=== PATIENT | male | born 1975 | race Caucasian/White ===

== ENCOUNTER → 2020-12-26 10:58 | Outpatient (CLI) | payer OTHER, SELFPAY ==
--- NOTE | ~2020-12-26 | XR_ITS ---
EXAMINATION: XR shoulder RT min 2V DATE: 12/26/2020 11:27 INDICATION: Right shoulder pain. TECHNIQUE: 5 views of right shoulder were obtained. COMPARISON: None. FINDINGS: Bone alignment is normal. No fracture. There is a benign bone island in proximal right sg nathaly. The glenohumeral joint is normal. There is mild acromioclavicular joint osteoarthritis. IMPRESSION: 1. Mild right acromioclavicular joint osteoarthritis. Reviewed, dictated and finalized at location A. [employer]
== END ==
PROVIDERS: PCP Internal Medicine; Visit Provider Internal Medicine
DX: M19.011 Primary osteoarthritis, right shoulder (principal)
CPT/HCPCS: 73030

== ENCOUNTER 2023-08-26 00:56 | Day surgery (SDC) | payer OTHER, SELFPAY ==
[2023-08-18 12:43] VITALS: BMI 30.9
--- NOTE | 2023-08-25 12:58 | PM.HPGS ---
History of Present Illness History of Present Illness Consent: Risks, benefits, and alternatives have been discussed and questions answered. Patient agrees to proceed with procedure. Chief complaint: neoplasm screening Narrative: Stanford Milner is a 47 year old male Referred for colon cancer screening. Review of Systems Review of Systems: All systems reviewed & are unremarkable except as noted in HPI and below PMFSH Past Medical History Medical History Gastro-esophageal reflux disease without esophagitis Hyperlipidemia Obesity Pure hypercholesterolemia Tendonitis of both rotator cuffs Type 2 diabetes mellitus Surgical History Surgical History No pertinent past surgical history Family History Family History Mother Family history of obesity Diabetes mellitus type 2 Sibling Prediabetes Hypertension Social History Social History Smoking status: Never smoker Second hand tobacco smoke exposure: No Alcohol intake: never Alcohol use details: socially Substance use: never Substance use type: does not use Lack of Transportation: No Lack of Food: Never True Current Housing: I Have Housing Concerned About Future Housing: No Difficulty Paying Gas/Electric Bills: No Difficulty Paying for Meds: No Currently Unemployed: No Education: Trade/Vocational Certificate Difficulty w/ Childcare or Family Care: No Living arrangements: with family Spiritual care concerns: No Meds Home Medications and Allergies Home Medications Medication Instructions Recorded Confirmed Type lisinopril 10 mg tablet 10 mg PO DAILY #90 tabs 11/05/22 08/18/23 Rx metformin 500 mg tablet 500 mg PO .COMPLEX #270 tabs 05/19/23 08/18/23 Rx multivitamin 1 tablet PO DAILY 05/19/23 08/18/23 History pravastatin 20 mg tablet 20 mg PO DAILY #90 tabs 05/30/23 08/18/23 Rx semaglutide 1 mg/dose (4 mg/3 mL) 1 mg (0.75 mL) subcut WEEKLY #9 mL 06/29/23 08/18/23 Rx subcutaneous pen injector (Ozempic) Allergies Allergy/AdvReac Type Severity Reaction Status Date / Time No Known Allergies Allergy Verified 08/26/23 12:07 Exam Const: General: alert Orientation/consciousness: patient oriented x3 Resp: Auscultation: clear to auscultation bilaterally Cardio: Rhythm: regular rhythm GI: GI Palp: Yes Soft to palpation and No Tenderness to palpation present (GI) Neuro: General: patient oriented x3 Assessment and Plan Assessment and plan (1) Colon cancer screening: Code(s): Z12.11 - Encounter for screening for malignant neoplasm of colon Status: Acute Assessment and Plan: Colonoscopy with possible biopsy or polypectomy or cautery or injection of substances.
[2023-08-26 12:08] VITALS: BP 119/82; PULSE 91; RESP 18; TEMP 36.5; O2SAT 100
[2023-08-26] MEDS: LACTATED RINGERS 1,000 ML 150 ML IV CONT (12:25)
--- NOTE | 2023-08-26 12:28 | WPDANESEPPF ---
Anes - Initial Pre Proc Eval Procedure: Operation Date: 08/26/23 14:15 Proposed Procedures p Screening Colonoscopy - Rogelio Tenorio MD Date/Time: 08/26/23 12:28 Surgeon: Rogelio Tenorio MD Pre Op Diagnosis: neoplasm screening Patient Data Age: 47 Gender: M Height: 1.78 m Weight: 94.3 kg Last Vital Signs Temp 97.7 F 08/26/23 12:08 Pulse 91 08/26/23 12:08 Resp 18 08/26/23 12:08 BP 119/82 08/26/23 12:08 Pulse Ox 100 08/26/23 12:08 O2 Del Method Room Air 08/26/23 12:08 Allergies Allergy/AdvReac Type Severity Reaction Status Date / Time No Known Allergies Allergy Verified 08/26/23 12:07 Home Medications Medication Instructions Recorded Confirmed Type lisinopril 10 mg tablet 10 mg PO DAILY #90 tabs 11/05/22 08/18/23 Rx metformin 500 mg tablet 500 mg PO .COMPLEX #270 tabs 05/19/23 08/18/23 Rx multivitamin 1 tablet PO DAILY 05/19/23 08/18/23 History pravastatin 20 mg tablet 20 mg PO DAILY #90 tabs 05/30/23 08/18/23 Rx semaglutide 1 mg/dose (4 mg/3 mL) 1 mg (0.75 mL) subcut WEEKLY #9 mL 06/29/23 08/18/23 Rx subcutaneous pen injector (Ozempic) Patient hx anesthesia problems: none Family hx anesthesia problems: none Results Review: All pre-operative results and documents have been reviewed as part of the pre-operative evaluation. PENDING SALE TO [facility] Past Medical History Medical History Gastro-esophageal reflux disease without esophagitis Hyperlipidemia Obesity Pure hypercholesterolemia Tendonitis of both rotator cuffs Type 2 diabetes mellitus Surgical History Surgical History No pertinent past surgical history Family History Family History Mother Family history of obesity Diabetes mellitus type 2 Sibling Prediabetes Hypertension Social History Social History (Reviewed 05/19/23 @ 09:29 by MCKINLEY Bullock Smoking status: Never smoker Second hand tobacco smoke exposure: No Alcohol intake: never Alcohol use details: socially Substance use: never Substance use type: does not use Lack of Transportation: No Lack of Food: Never True Current Housing: I Have Housing Concerned About Future Housing: No Difficulty Paying Gas/Electric Bills: No Difficulty Paying for Meds: No Currently Unemployed: No Education: Trade/Vocational Certificate Difficulty w/ Childcare or Family Care: No Living arrangements: with family Spiritual care concerns: No Anes - Eval Final PreProcedure Day of Procedure 08/26/23 12:28 Patient weight: obese Heart: regular rate and rhythm Lungs: clear to auscultation Airway: Mallampati scale class II Neurological: alert and oriented Last oral intake: >/= 8 hours ASA classification: III Emergent: no Anesthetic plan: proceed Anesthesia type and monitoring: general GIVS and standard monitoring Results Review: All pre-operative results and documents have been reviewed as part of the pre-operative evaluation. Informed Consent: The patient's anesthetic plan and its attendant risks and benefits were discussed with the patient/family/POA. Questions were solicited and answers provided to the satisfaction of the patient/family/POA.
[2023-08-26 12:31] LABS: Glucose Point of Care 88 mg/dl (65-105)
[2023-08-26 13:12] VITALS: BP 109/78; PULSE 85; RESP 25; O2SAT 95
[2023-08-26 13:22] VITALS: BP 120/77; PULSE 78; RESP 15; O2SAT 98
[2023-08-26 13:32] VITALS: BP 123/81; PULSE 71; RESP 21; O2SAT 100
== END 2023-08-26 13:35 | disposition home or self-care (01) ==
PROVIDERS: PCP Internal Medicine; Visit Provider Internal Medicine Gastroenterology
PROC: 0DJD8ZZ Inspection of Lower Intestinal Tract, Via Natural or Artificial Opening Endoscopic (ICD-10-PCS; CPT 45378; principal; 2023-08-26 14:15)
DX: Z12.11 Encounter for screening for malignant neoplasm of colon (principal); K21.9 Gastro-esophageal reflux disease without esophagitis; E11.9 Type 2 diabetes mellitus without complications; E78.00 Pure hypercholesterolemia, unspecified; Z79.84 Long term (current) use of oral hypoglycemic drugs; Z79.85 Long-term (current) use of injectable non-insulin antidiabetic drugs; E66.9 Obesity, unspecified; Z68.29 Body mass index [BMI] 29.0-29.9, adult
CPT/HCPCS: 45378; 82948; J2704; J7120